=== PATIENT | male | born 2000 | race Two or more races ===

== ENCOUNTER 2021-06-16 18:47 | Emergency (ER) | payer OTHER ==
[~2021-06-16] VITALS: Ht 182.9 cm; Wt 68.9 kg
== END 2021-06-16 21:16 | disposition home or self-care (01) ==
LOC: ER 18:47
DX: S01.01XA Laceration without foreign body of scalp, initial encounter (principal); S06.0X0A Concussion without loss of consciousness, initial encounter; X58.XXXA Exposure to other specified factors, initial encounter; Y93.59 Activity, other involving other sports and athletics played individually; Y92.018 Other place in single-family (private) house as the place of occurrence of the external cause; Y99.8 Other external cause status